=== PATIENT | female | born 1950 | race Caucasian/White ===

== ENCOUNTER 2020-08-07 09:46 | Outpatient (REF) | payer MEDICARE, OTHER, SELFPAY ==
--- NOTE | 2020-08-07 09:58 | MM_ITS ---
EXAMINATION: MM SCREENING DIGITAL BREAST TOMOSYNTHESIS, BILATERAL CLINICAL INFORMATION: Screening. Asymptomatic. The lifetime risk of breast cancer based on the Tyrer-Cuzick Model is 3%. COMPARISON: Mammography: 08/01/2019, 07/26/2018, 07/15/2017. TECHNIQUE: Digital breast tomosynthesis is performed in both the craniocaudal and mediolateral oblique views along with computer-aided detection (CAD). Synthesized 2D images are generated from the tomosynthesis. FINDINGS: There are scattered areas of fibroglandular density (ACR BI-RADS breast composition Category b). There are no significant masses, abnormal calcifications, or other abnormalities. Parenchymal pattern is similar to prior exams. MM/MM tomosynthesis screening BI IMPRESSION: No mammographic evidence of malignancy. ASSESSMENT: BI-RADS 1: Negative RECOMMENDATION: Routine annual mammography screening. This patient's information was entered into a reminder system with a target due date for their next mammogram.
== END 2020-08-07 09:47 | disposition home or self-care (01) ==
LOC: HO.MAMMO 09:46
DX: Z12.31 Encounter for screening mammogram for malignant neoplasm of breast (principal)
CPT/HCPCS: 77063; 77067

== ENCOUNTER 2021-06-12 08:20 | Outpatient (REF) | payer MEDICARE, OTHER, SELFPAY ==
--- NOTE | ~2021-06-12 | MM_ITS ---
EXAMINATION: BONE DENSITOMETRY CLINICAL INDICATION: Encounter for screening for osteoporosis. COMPARISON: Previous BD dated 11/03/2017 and baseline BD dated 05/23/2014. TECHNIQUE: Using a [employer] DXA System (software version: 13.1) manufactured by [employer], dual-energy x-ray absorptiometry was performed of the lumbar spine and left hip. The images are of good technical quality. Summary results are attached. FINDINGS: AP SPINE L1-L4: Current: BMD 1.050 g/cm2, Z-score 0.5, T-score -1.1, osteopenia, 0.0% no change from previous, 4.5% decrease from baseline (<5% change is not significant). Prior: BMD 1.050 g/cm2. Baseline: BMD 1.100 g/cm2. LEFT FEMUR, NECK: Current: BMD 0.872 g/cm2, Z-score 0.5, T-score -1.2, osteopenia. Prior: BMD 0.790 g/cm2. Baseline: BMD 0.820 g/cm2. LEFT FEMUR, TOTAL: Current: BMD 0.890 g/cm2, Z-score 0.5, T-score -0.9, normal, 2.7% increase from previous, 1.9% decrease from baseline (<5% change is not significant). Prior: BMD 0.867 g/cm2. Baseline: BMD 0.907 g/cm2. IDENTIFIED RISK FACTORS: Menopause, hysterectomy, bilateral oophorectomy. HISTORY OF FRACTURE: None listed. MEDICATIONS: Calcium or multivitamin. MM/XR DEXA axial skeleton IMPRESSION: 1. DIAGNOSIS: Osteopenia based on the lowest T-score value of -1.2 in the femoral neck applying World Health Organization criteria. 2. 10-YEAR FRACTURE RISK PREDICTION, FRAX: Major osteoporotic fracture (clinical spine, forearm, hip or shoulder) 5.2%. Hip fracture 0.7%. 3. Treatment Recommendations: NOF guidelines recommend consideration for treatment in postmenopausal women and men age 50 and older presenting with the following: -A hip or vertebral (clinical or morphometric) fracture. -T-score less than or equal to -2.5 at the femoral neck or spine after appropriate evaluation to exclude secondary causes. -Low bone mass at the hip or spine and a 10-year fracture probability by FRAX of greater than or equal to 3% for hip fracture or greater than or equal to 20% for major osteoporotic fracture based on the [place] adapted WHO algorithm. 4. Other Recommendations: All treatment decisions require clinical judgment and consideration of individual patient factors, including patient preferences, comorbidities, previous drug use, risk factors not captured in the FRAX model (e.g. frailty, falls, vitamin D deficiency, increased bone turnover, interval significant decline in bone density) and possible under or overestimation of fracture risk by FRAX. Additional medical evaluation for secondary cause of low bone mineral density may be appropriate. FUTURE SCAN RECOMMENDATION: People with diagnosed cases of osteoporosis or at high risk for fracture should have regular bone mineral density tests. For patients eligible for Medicare, routine testing is allowed once every 2 years. The testing frequency can be increased to one year for patients who have rapidly progressing disease, those who are receiving or discontinuing medical therapy to restore bone mass, or have additional risk factors.
== END 2021-06-12 08:21 | disposition home or self-care (01) ==
LOC: HO.MAMMO 08:20
PROVIDERS: Visit Provider Internal Medicine
DX: Z13.820 Encounter for screening for osteoporosis (principal); M85.80 Other specified disorders of bone density and structure, unspecified site; N95.9 Unspecified menopausal and perimenopausal disorder; Z78.0 Asymptomatic menopausal state; Z90.722 Acquired absence of ovaries, bilateral; Z79.899 Other long term (current) drug therapy
CPT/HCPCS: 77080

== ENCOUNTER → 2021-10-13 07:51 | Outpatient (BNVA) | payer MEDICARE, OTHER, SELFPAY | PROVIDERS: PCP Internal Medicine; Visit Provider Obstetrics & Gynecology | DX: R22.9 Localized swelling, mass and lump, unspecified (principal) | CPT/HCPCS: 99202 ==

== ENCOUNTER 2021-11-02 15:27 | Outpatient (REF) | payer MEDICARE, OTHER, SELFPAY ==
--- NOTE | ~2021-11-02 | US_ITS ---
EXAMINATION: US PELVIS, LIMITED/FOLLOW UP CLINICAL INFORMATION: Right perineal soft tissues lump. COMPARISON: Previous CT of the abdomen and pelvis May 2014. TECHNIQUE: Grayscale and color imaging of the peroneal region using a linear transducer. Comparison imaging of the left peroneal region was also performed. FINDINGS: There is a 2.6 x 1.7 x 3.7 cm hyperechoic area just deep to the skin corresponding to palpable abnormality in the right perineum. This appears solid and has minimal vascularity. Ultrasound appearance is nonspecific. Lipoma could be considered. US/US pelvic limited IMPRESSION: 2.6 x 1.7 x 3.7 cm hyperechoic lesion with minimal vascularity in the right perineum. Ultrasound appearance is nonspecific.
== END 2021-11-02 15:28 | disposition home or self-care (01) ==
LOC: HO.US 15:27
PROVIDERS: PCP Internal Medicine; Visit Provider Obstetrics & Gynecology
DX: R22.9 Localized swelling, mass and lump, unspecified (principal)
CPT/HCPCS: 76857

== ENCOUNTER 2021-11-04 07:41 | Outpatient (REF) | payer MEDICARE, OTHER, SELFPAY ==
--- NOTE | ~2021-11-04 | MM_ITS ---
EXAMINATION: MM SCREENING DIGITAL BREAST TOMOSYNTHESIS, BILATERAL CLINICAL INFORMATION: Screening. Asymptomatic. The lifetime risk of breast cancer based on the Tyrer-Cuzick Model is 2%. COMPARISON: Mammography: 08/07/2020, 08/01/2019, 07/26/2018, 07/15/2017, 06/09/2016, 04/28/2015 TECHNIQUE: Digital breast tomosynthesis is performed in both the craniocaudal and mediolateral oblique views along with computer-aided detection (CAD). Synthesized 2D images are generated from the tomosynthesis. FINDINGS: There are scattered areas of fibroglandular density (ACR BI-RADS breast composition Category b). The right breast parenchymal pattern is similar to prior studies. There is incidental intramammary node again noted posterior upper outer right breast. Bilateral vascular and some punctate round calcifications are again noted. The axilla and skin contours are unremarkable. Left MLO has small nodular asymmetric density near posterior nipple line 3 cm from nipple. There is no CC correlate and finding may be related to summation artifact or incompletely compressed glandular tissue. MM/MM tomosynthesis screening BI IMPRESSION: Left: -Asymmetric density anterior breast on MLO view, possibly summation artifact or incompletely compressed glandular tissue. Right: -No mammographic evidence of malignancy. ASSESSMENT: BI-RADS 0: Incomplete - Need Additional Imaging Evaluation RECOMMENDATION: 1. Additional views of the left breast (spot MLO, standard ML). 2. Targeted ultrasound if warranted after review of the additional views. 3. Radiology department staff will contact the patient for additional imaging. This patient's information was entered into a reminder system with a target due date for their next mammogram.
== END 2021-11-04 07:42 | disposition home or self-care (01) ==
LOC: HO.MAMMO 07:41
PROVIDERS: PCP Internal Medicine; Visit Provider Internal Medicine
DX: Z12.31 Encounter for screening mammogram for malignant neoplasm of breast (principal)
CPT/HCPCS: 77063; 77067

== ENCOUNTER 2021-11-12 16:30 | Outpatient (REF) | payer MEDICARE, OTHER, SELFPAY ==
--- NOTE | ~2021-11-12 | XR_ITS ---
EXAMINATION: XR KNEE, RIGHT CLINICAL INFORMATION: Pain in right knee. COMPARISON: None TECHNIQUE: Four views of the right knee. FINDINGS: There is a small avulsion fragment along the medial femoral condyle. No additional bony abnormality seen. There is mild suprapatellar joint effusion. No loose bodies noted. There is no dislocation. XR/XR knee RT 2V IMPRESSION: Small avulsion bone fragment along the medial femoral condyle with mild suprapatellar joint effusion.
== END 2021-11-12 16:31 | disposition home or self-care (01) ==
LOC: HO.XRAY 16:30
PROVIDERS: Absent Provider Internal Medicine; PCP Internal Medicine; Visit Provider Family Medicine
DX: M25.561 Pain in right knee (principal)
CPT/HCPCS: 73560

== ENCOUNTER → 2021-11-16 11:23 | Outpatient (BNVA) | payer MEDICARE, OTHER, SELFPAY | PROVIDERS: PCP Internal Medicine; Visit Provider Obstetrics & Gynecology | DX: R22.9 Localized swelling, mass and lump, unspecified (principal) | CPT/HCPCS: 99212 ==

== ENCOUNTER 2021-11-19 08:33 | Outpatient (REF) | payer MEDICARE, OTHER, SELFPAY ==
--- NOTE | ~2021-11-19 | MM_ITS ---
EXAMINATION: MM DIAGNOSTIC DIGITAL BREAST TOMOSYNTHESIS, LEFT CLINICAL INFORMATION: Recall from screening for asymmetric density near posterior nipple line left MLO view without CC correlate, likely summation artifact or incompletely compressed glandular tissue. COMPARISON: Mammography: 11/04/2021, 08/07/2020, 08/01/2019 TECHNIQUE: Digital breast tomosynthesis is performed. 2D images are generated from the tomosynthesis. The following views are obtained: Spot MLO, standard ML. FINDINGS: There are scattered areas of fibroglandular density (ACR BI-RADS breast composition Category b). Additional views show no mass or developing density or architectural abnormality from prior studies. Results are discussed with the patient at time of visit. MM/MM tomosynthesis added views L IMPRESSION: Additional views are unremarkable. No persistent asymmetric density or mass. ASSESSMENT: BI-RADS 2: Benign RECOMMENDATION: Routine annual mammography screening. This patient's information was entered into a reminder system with a target due date for their next mammogram.
== END 2021-11-19 08:34 | disposition home or self-care (01) ==
LOC: HO.MAMMO 08:33
PROVIDERS: Visit Provider Internal Medicine
DX: R92.2 Inconclusive mammogram (principal)
CPT/HCPCS: 77061; 77065

== ENCOUNTER 2021-11-23 08:16 | Outpatient (REF) | payer MEDICARE, OTHER, SELFPAY ==
--- NOTE | ~2021-11-23 | XR_ITS ---
EXAMINATION: XR KNEE, RIGHT XR KNEE STANDING, BILATERAL CLINICAL INFORMATION: Pain in right knee. COMPARISON: None TECHNIQUE: Bilateral AP knee standing. Right knee 2 views. FINDINGS: BILATERAL AP KNEE: There is mild reduction in medial compartment joint space of both knees with minimal periarticular spurring. There is mild calcification of the lateral menisci bilaterally. No fracture, bony erosive changes, loose bodies. RIGHT KNEE: The patellofemoral compartment joint space is maintained normal. No acute fracture, dislocation or subluxation seen. No abnormal joint effusion. XR/XR knee standing BI IMPRESSION: Mild early degenerative changes medial compartment both knees. No visible acute fracture or dislocation seen.
--- NOTE | ~2021-11-23 | XR_ITS ---
EXAMINATION: XR KNEE, RIGHT XR KNEE STANDING, BILATERAL CLINICAL INFORMATION: Pain in right knee. COMPARISON: None TECHNIQUE: Bilateral AP knee standing. Right knee 2 views. FINDINGS: BILATERAL AP KNEE: There is mild reduction in medial compartment joint space of both knees with minimal periarticular spurring. There is mild calcification of the lateral menisci bilaterally. No fracture, bony erosive changes, loose bodies. RIGHT KNEE: The patellofemoral compartment joint space is maintained normal. No acute fracture, dislocation or subluxation seen. No abnormal joint effusion. XR/XR knee RT 2V IMPRESSION: Mild early degenerative changes medial compartment both knees. No visible acute fracture or dislocation seen.
== END 2021-11-23 08:17 | disposition home or self-care (01) ==
LOC: HO.HOSX 08:16
PROVIDERS: Visit Provider Physician Assistant
DX: S83.206A Unspecified tear of unspecified meniscus, current injury, right knee, initial encounter (principal); M17.11 Unilateral primary osteoarthritis, right knee; M25.562 Pain in left knee
CPT/HCPCS: 20610; 73560; 73565; 99202; J1040

== ENCOUNTER 2021-12-23 10:00 | Outpatient (REF) | payer MEDICARE, SELFPAY ==
--- NOTE | ~2021-12-23 | US_ITS ---
EXAMINATION: US BIOPSY SUBCUTANEOUS SKIN US GUIDED ASPIRATION, RIGHT PERINEAL LUMP CLINICAL INFORMATION: Right perineal lump growing in size since 3 years. COMPARISON: Ultrasound pelvis 11/04/2021. TECHNIQUE: Following explaining ultrasound-guided right perineal lump biopsy procedure, benefits and risks, a written consent was obtained. Patient was placed supine in the lithotomy position on ultrasound stretcher. Preliminary ultrasound imaging was obtained through the right perineum where a lump is seen. The area was imaged and marker placed. The marked site was cleaned and draped in usual sterile manner. 1% lidocaine was injected at puncture site. Through a small skin incision a 25-gauge needle was advanced through the skin into the lump and at least 3 pass fine-needle biopsy is performed. Subsequently a 22-gauge needle was advanced into the lump and a 2 pass fine-needle aspiration was performed. Lastly a core biopsy was performed with a 20-gauge Biopty gun. Postprocedure complete hemostasis achieved at puncture site. Patient tolerated procedure extremely well. Sterile dressing applied postprocedure. No conscious sedation utilized. The floor trader was present during the exam. FINDINGS: On preliminary ultrasound imaging there is a well-defined echogenic lesion in the right perineum subcutaneous region. Several fine-needle biopsy/aspiration with 25-gauge and 22-gauge needles followed by 22-gauge core biopsy x5 was performed. Postbiopsy images revealed slightly hyperechoic area centrally likely hematoma within the lesion. US/US biopsy subcutaneous skin IMPRESSION: Successful ultrasound guided fine-needle aspiration and core biopsy of right perineum lesion was performed. Definite pathology results are pending.
--- NOTE | ~2021-12-23 | US_ITS ---
EXAMINATION: US BIOPSY SUBCUTANEOUS SKIN US GUIDED ASPIRATION, RIGHT PERINEAL LUMP CLINICAL INFORMATION: Right perineal lump growing in size since 3 years. COMPARISON: Ultrasound pelvis 11/04/2021. TECHNIQUE: Following explaining ultrasound-guided right perineal lump biopsy procedure, benefits and risks, a written consent was obtained. Patient was placed supine in the lithotomy position on ultrasound stretcher. Preliminary ultrasound imaging was obtained through the right perineum where a lump is seen. The area was imaged and marker placed. The marked site was cleaned and draped in usual sterile manner. 1% lidocaine was injected at puncture site. Through a small skin incision a 25-gauge needle was advanced through the skin into the lump and at least 3 pass fine-needle biopsy is performed. Subsequently a 22-gauge needle was advanced into the lump and a 2 pass fine-needle aspiration was performed. Lastly a core biopsy was performed with a 20-gauge Biopty gun. Postprocedure complete hemostasis achieved at puncture site. Patient tolerated procedure extremely well. Sterile dressing applied postprocedure. No conscious sedation utilized. The rouge sifter was present during the exam. FINDINGS: On preliminary ultrasound imaging there is a well-defined echogenic lesion in the right perineum subcutaneous region. Several fine-needle biopsy/aspiration with 25-gauge and 22-gauge needles followed by 22-gauge core biopsy x5 was performed. Postbiopsy images revealed slightly hyperechoic area centrally likely hematoma within the lesion. US/US guided fine needle asp IMPRESSION: Successful ultrasound guided fine-needle aspiration and core biopsy of right perineum lesion was performed. Definite pathology results are pending.
[2021-12-23] MEDS: Lidocaine HCl 1 % MPF 5 ML VIAL SUBCUT (12:01)
== END 2021-12-23 10:01 | disposition home or self-care (01) ==
LOC: HO.US 10:00
PROVIDERS: Visit Provider Obstetrics & Gynecology
DX: R22.9 Localized swelling, mass and lump, unspecified (principal)
CPT/HCPCS: 10005; 11104; 88172; 88173; 88177; 88305; 88313; 88333

== ENCOUNTER → 2021-12-30 07:51 | Outpatient (BNVA) | payer MEDICARE, SELFPAY | PROVIDERS: PCP Internal Medicine; Visit Provider Obstetrics & Gynecology | DX: R22.2 Localized swelling, mass and lump, trunk (principal) | CPT/HCPCS: 99212 ==

== ENCOUNTER → 2022-01-14 08:45 | Outpatient (BNVA) | payer MEDICARE, OTHER, SELFPAY | PROVIDERS: PCP Internal Medicine; Visit Provider Obstetrics & Gynecology | DX: R22.2 Localized swelling, mass and lump, trunk (principal) | CPT/HCPCS: 99212 ==

== ENCOUNTER 2022-01-15 09:15 | Day surgery (SDC) | payer MEDICARE, OTHER, SELFPAY ==
[2022-01-07 09:19] VITALS: BMI 31.1
--- NOTE | 2022-01-13 14:15 | HO.ANESPROP2 ---
HPI - Anesthesia Eval Consult details Narrative: 71yo F for Right Excision mass perineal lump PMFSH Active Problems Active Problems: All Active Problems (Updated 01/07/22 @ 09:21 by Janessa Martinez RN) Perineal lump (Acute) Osteoarthritis of right knee (Acute) Tear of meniscus of right knee as current injury (Acute) Past Medical History Medical History (Updated 01/07/22 @ 09:21 by Janessa Martinez RN) COVID-19 vaccine series completed Diverticulitis High cholesterol Hypertension Surgical History Surgical History (Updated 01/07/22 @ 09:21 by Janessa Martinez RN) H/O colonoscopy H/O knee surgery H/O: hysterectomy History of colon resection Social History Social History Alcohol intake: current Alcohol intake frequency: does not drink Patient Tobacco Use Status: Never used Tobacco Current occupational status: retired Current occupation: lt hand Meds Allergies Allergy/AdvReac Type Severity Reaction Status Date / Time No Known Allergies Allergy Verified 12/30/21 07:56 [No Known Allergies*] Home Medications Medication Instructions Recorded Confirmed Last Taken Type atorvastatin 40 mg tablet 40 mg PO DAILY 10/13/21 01/07/22 Unknown History calcium carbonate 600 mg calcium 600 mg PO DAILY 10/13/21 01/07/22 Unknown History (1,500 mg) tablet (Calcium) lisinopril 20 1 tab PO DAILY 10/13/21 Unknown History mg-hydrochlorothiazide 12.5 mg tablet metoprolol tartrate 25 mg tablet 25 mg PO DAILY 10/13/21 01/07/22 Unknown History losartan 100 1 tab PO DAILY 11/23/21 01/07/22 Unknown History mg-hydrochlorothiazide 25 mg tablet Exam Exam Date and Time: January 13, 2022 1415 Height,Weight and Vital Signs: Height 4 ft 11 in Weight 69.853 kg Assessment and Plan Assessment Anesthesia Assessment: Chart Reviewed
[2022-01-15] VITALS (9 sets, daily range): BP systolic 107–140; BP diastolic 51–67; PULSE 50–68; RESP 12–18; TEMP 36.2–36.3; O2SAT 95–98
[2022-01-15] MEDS: Lactated Ringers 1,000 ML 100 ML IVCONT (10:02)
--- NOTE | 2022-01-15 11:40 | P.CONAN_ITS ---
[facility] Active Problems Active Problems: All Active Problems (Updated 01/07/22 @ 09:21 by Janessa Martinez RN) Perineal lump (Acute) Osteoarthritis of right knee (Acute) Tear of meniscus of right knee as current injury (Acute) Past Medical History Medical History COVID-19 vaccine series completed Diverticulitis High cholesterol Hypertension Patient : No Family History Family history of problems with anesthesia: No Surgical History Surgical History H/O colonoscopy H/O knee surgery H/O: hysterectomy History of colon resection History of Problems with Anesthesia: No Social History Social History Alcohol intake: current Alcohol intake frequency: does not drink Patient Tobacco Use Status: Never used Tobacco Use of substances other than those prescribed or required for medical reasons: No Have you been hit, kicked, punched, or otherwise hurt by someone within the past year? If so, by whom?: No Are you DNR?: No Advance Directives: No Advance Directives Information Provided: Yes (brochure mailed) Advance Directives on File: No Recently lost weight without trying: No Eating poorly because of decreased appetite: No Nutrition Risks: No Nutritional Risk Poor oral hygiene: No (has lower partial) Current occupational status: retired Current occupation: lt hand Meds Allergies Allergy/AdvReac Type Severity Reaction Status Date / Time No Known Allergies Allergy Verified 01/15/22 09:51 [No Known Allergies*] Active Medications: Current Medications Fentanyl (Fentanyl Citrate/Pf 100 Mcg/2 Ml Vial) 25 mcg IVPUSH Q5M PRN; Protocol PRN Reason: Pain, Moderate (Pain Scale 4-6 Lactated Ringer's (Lr) 1,000 mls @ 100 mls/hr IVCONT .Q10H TYRA Last Admin: 01/15/22 10:02 Dose: 100 mls/hr Ondansetron HCl (Ondansetron Hcl 4 Mg/2 Ml Vial) 4 mg IVPUSH ONCE PRN PRN Reason: Nausea and Vomiting Oxycodone HCl (Oxycodone Hcl Immed Release 5 Mg Tablet) 5 mg PO ONCE PRN PRN Reason: Pain, Severe (Pain Scale 7-10) Home Medications Medication Instructions Recorded Confirmed Last Taken Type atorvastatin 40 mg tablet 40 mg PO DAILY 10/13/21 01/07/22 Unknown History calcium carbonate 600 mg calcium 600 mg PO DAILY 10/13/21 01/07/22 Unknown History (1,500 mg) tablet (Calcium) lisinopril 20 1 tab PO DAILY 10/13/21 Unknown History mg-hydrochlorothiazide 12.5 mg tablet metoprolol tartrate 25 mg tablet 25 mg PO DAILY 10/13/21 01/07/22 01/15/22 History losartan 100 1 tab PO DAILY 11/23/21 01/07/22 Unknown History mg-hydrochlorothiazide 25 mg tablet Exam Exam Date and Time: January 15, 2022 1140 Height,Weight and Vital Signs: Height 4 ft 11 in Weight 69.853 kg Last Vital Signs Temp 97.4 F 01/15/22 09:57 Pulse 61 01/15/22 09:57 Resp 18 01/15/22 09:57 BP 136/67 01/15/22 09:57 Pulse Ox 97 01/15/22 09:57 O2 Del Method 01/15/22 09:57 Airway Mallampati Class: I TM Dist: >3cm Neck ROM: Full Partial: Lower Loose/Missing/Broken Teeth: No (Rrr) Lungs: clear Assessment and Plan Assessment Anesthesia Assessment: Anesthesia Plan Discussed Final Anesthetic Review Family History of Problems with Anesthesia: No History of Problems with Anesthesia: No NPO: Yes ASA Class: II Final Preanesthetic Review: No Changes in Pt Med Stat, Meds/Allgs Chart Reviewed and Anes Risks/Benef Reviewed Patient Risk: Low Procedure Risk: Low Anesthetic Plan Anesthetic Plan: GA Disposition: Standard PACU
--- NOTE | 2022-01-15 12:19 | MHC.SHP ---
Pre-Procedural Eval Section A Date of Service: 01/15/22 The patient is an INPATIENT: No Changes since office visit: No Cold of Flu in the past 2 weeks, No New Medical Problems, No Changes in Medication and No Patient answered all questions The History & Physical has been completed within 30 days and I have reviewed it.: Yes Section B Chief Complaint: Localized swelling, mass and lump, unspecified Allergies: Allergies Allergy/AdvReac Type Severity Reaction Status Date / Time No Known Allergies Allergy Verified 01/15/22 09:51 [No Known Allergies*] Plan Diagnosis/Plan: Unchanged I have reviewed the history and physical and performed a pertinent physical examination on my patient. No changes have occurred unless specified.
--- NOTE | 2022-01-15 13:08 | P.BOP_ITS ---
Brief Operative Note Date of Service: 01/15/22 Pre-op diagnosis: Right perineal lump Post-op diagnosis: same Procedure: Excision of right perineal lump Surgeon: Antonio Sinha MD Anesthesia: MAC Was an Automotive Customer Experience Advisor used for this Procedure?: No Estimated blood loss (mL): 0 Pathology: other (Right perineal lump) Condition: stable Disposition: PACU
--- NOTE | 2022-01-15 13:09 | P.OP_ITS ---
Operative Note Operative Note Date of Service: 01/15/22 Narrative: Preop diagnosis: Right perineal lump Operation: Excision of right perineal lump Postop diagnosis: The same Anesthesia: Mac and local Complications: None Estimated blood loss: 0 cc Pathology: Right perineal lump Senior Compliance Analyst: None Procedure: The patient was put in the dorsal lithotomy position after given anesthesia, scrubbed and draped in usual sterile fashion. Right perineal lump was identified. Using an 11 blade, an incision was made on top of the right perineal lump and using compound scissors the lump was dissected off and excised . Using 2. 0 Vicryl the subcuticular layer was reapproximated and 4-0 Vicryl subcuticular sutures were used to approximate the skin. Hemostasis was assured. At the and of procedure Marcaine plain were injected in the subq layer. The patient tolerated the procedure well and was transferred to PACU in stable condition
== END 2022-01-15 14:58 | disposition home or self-care (01) ==
PROVIDERS: PCP Internal Medicine; Visit Provider Obstetrics & Gynecology
PROC: (CPT 27043; principal; 2022-01-15 12:20)
DX: D17.1 Benign lipomatous neoplasm of skin and subcutaneous tissue of trunk (principal); I10 Essential (primary) hypertension; E78.00 Pure hypercholesterolemia, unspecified; Z79.899 Other long term (current) drug therapy; Z87.19 Personal history of other diseases of the digestive system; Z90.49 Acquired absence of other specified parts of digestive tract
CPT/HCPCS: 27043; 88304; 88305; J0690; J1100; J2250; J2405; J3010

== ENCOUNTER → 2022-02-03 10:54 | Outpatient (BNVA) | payer MEDICARE, OTHER, SELFPAY | PROVIDERS: PCP Internal Medicine; Visit Provider Obstetrics & Gynecology | DX: Z48.817 Encounter for surgical aftercare following surgery on the skin and subcutaneous tissue (principal); Z87.2 Personal history of diseases of the skin and subcutaneous tissue | CPT/HCPCS: 99212 ==

== ENCOUNTER 2022-10-13 07:44 | Outpatient (REF) | payer MEDICARE, OTHER, SELFPAY ==
--- NOTE | ~2022-10-13 | XR_ITS ---
EXAMINATION: XR SHOULDER, RIGHT CLINICAL INFORMATION: M25.511 - Pain in right shoulder COMPARISON: None available. TECHNIQUE: Right shoulder is imaged in 3 views. FINDINGS: No fracture, dislocation, destructive process. The acromioclavicular alignment is normal. There are mild degenerative changes acromioclavicular joint. The glenohumeral joint is unremarkable. There are no visible rotator cuff calcifications. XR/XR shoulder RT min 2V IMPRESSION: Mild degenerative changes acromioclavicular joint. No visible rotator cuff calcifications.
== END 2022-10-13 07:45 | disposition home or self-care (01) ==
LOC: HO.HOSX 07:44
PROVIDERS: Visit Provider Physician Assistant
DX: M19.011 Primary osteoarthritis, right shoulder (principal); M75.81 Other shoulder lesions, right shoulder; M25.511 Pain in right shoulder
CPT/HCPCS: 20610; 73030; 99202; J1040

== ENCOUNTER 2022-11-08 07:25 | Outpatient (REF) | payer MEDICARE, SELFPAY ==
--- NOTE | ~2022-11-08 | MM_ITS ---
EXAMINATION: MM SCREENING DIGITAL BREAST TOMOSYNTHESIS, BILATERAL CLINICAL INFORMATION: Screening. Asymptomatic. The lifetime risk of breast cancer based on the Tyrer-Cuzick Model is 2.0%. COMPARISON: Mammography: 12/14/2021 and studies dating back to 04/28/2015. TECHNIQUE: Digital breast tomosynthesis is performed in both the craniocaudal and mediolateral oblique views along with computer-aided detection (CAD). Synthesized 2D images are generated from the tomosynthesis. FINDINGS: The breasts are heterogeneously dense, which may obscure small masses (ACR BI-RADS breast composition Category c). There are no new significant masses, abnormal calcifications, or other abnormalities. Nodular densities are again seen bilaterally without significant change. Some of the densities about the anterior left breast are seen to be stable since study of 06/09/2016. MM/MM tomosynthesis screening BI IMPRESSION: No significant changes from prior exam. ASSESSMENT: BI-RADS 2: Benign RECOMMENDATION: Routine annual mammography screening. This patient's information was entered into a reminder system with a target due date for their next mammogram.
== END 2022-11-08 07:26 | disposition home or self-care (01) ==
LOC: HO.MAMMO 07:25
PROVIDERS: PCP Internal Medicine; Visit Provider Internal Medicine
DX: Z12.31 Encounter for screening mammogram for malignant neoplasm of breast (principal)
CPT/HCPCS: 77063; 77067